=== PATIENT | male | born 1990 | race African-American/Black ===

== ENCOUNTER 2018-05-19 23:12 | Emergency (ER) | payer SELFPAY ==
[~2018-05-19] VITALS: Ht 180.3 cm; Wt 81.6 kg
[2018-05-19] MEDS ORDERED: NKM (23:22)
[2018-05-19 23:28] VITALS: BP 120/75
[2018-05-20] MEDS ORDERED: Tetanus/Diptheria/Pertussis Vaccine 0.5ml Syr IM ONE
[2018-05-20] MEDS ORDERED: CLINDAMYCIN HC300 MG ORAL (00:20)
[2018-05-20] MEDS ORDERED: IBUPROFEN600 MG ORAL (00:20)
--- NOTE | 2018-05-20 00:20 | Emergency Room Report ---
History of Present Illness General Chief Complaint: Laceration Source: Patient Present Illness HPI Is a 27-year-old male who is right-hand dominant. He presents with 2 chief complaints. First one is laceration to his right ring finger. He just finished cutting chicken and placed the knife on the counter. He asked me not the knife down and try to catch it. He sustained a laceration to the tip of his right ring finger. This occurred around 6 PM. It would not stop bleeding. No other injury. Pain is throbbing in nature, 7 out of 10. Secondary complaint of dental pain. His been ongoing for couple months. Mostly to his left jaw. He seen a doctor before and given a shot of pain medication and antibiotics. Has never follow-up with dentist. No swelling. Allergies: Coded Allergies: No Known Allergies (Unverified , 05/19/18) Patient History Past Medical History: see triage record, old chart reviewed Past Surgical History: none Pertinent Family History: none Social History: Denies: smoking Immunizations: other Reviewed Nursing Documentation: PMH: Agreed; PSxH: Agreed Nursing Documentation-PMH Past Medical History: No Stated History Review of Systems Eye: Denies: eye pain, blurred vision ENT: Denies: ear pain, nose congestion, throat swelling Respiratory: Denies: cough, shortness of breath Cardiovascular: Denies: chest pain, palpitations Gastrointestinal: Denies: abdominal pain, diarrhea, nausea, vomiting Musculoskeletal: Denies: back pain, joint pain Skin: Denies: rash Neurological: Denies: headache, numbness Endocrine: Denies: increased thirst, increased urine Hematologic/Lymphatic: Denies: easy bruising All Other Systems: negative except mentioned in HPI Physical Exam Vital Signs Date Time Temp Pulse Resp B/P (MAP) Pulse Ox O2 Delivery O2 Flow Rate FiO2 05/19/18 23:14 97.6 74 16 120/75 98 Room Air 97.5 vitals normal Sp02 EP Interpretation: reviewed, normal General Appearance: well appearing, no apparent distress, alert Head: normocephalic, atraumatic Eyes: bilateral eye PERRL, bilateral eye EOMI ENT: hearing grossly normal, normal pharynx, other - Poor Dentition with decay Neck: full range of motion, supple, no meningismus Respiratory: chest non-tender, lungs clear, normal breath sounds Cardiovascular #1: regular rate, rhythm, no murmur Gastrointestinal: normal bowel sounds, non tender, no mass, no organomegaly, no bruit, non-distended Musculoskeletal: back normal, gait/station normal, normal range of motion, other - Right ring finger: There is a 2 cm laceration over the pad. Full range of motion. No tendon laceration. No foreign body. Neurologic: alert, oriented x3 Psychiatric: mood/affect normal Skin: warm/dry Procedures Laceration/Wound Repair Laceration/Wound Repair : Consent: Verbal Wound Location: upper extremity Wound's Depth, Shape: linear Wound Length (cm): 2 Wound Explored: clean Irrigated w/ Saline (ccs): 1000 Betadine Prep?: Yes Anesthesia: 1% Lidocaine Volume Anesthetic (ccs): 1 Wound Repaired With: sutures Suture Size/Type: 6:0, proline Number of Sutures: 4 Patient Tolerated: Well Complications: None Medical Decision Making Diagnostic Impression: Primary Impression: Finger laceration Qualified Codes: S61.214A - Laceration without foreign body of right ring finger without damage to nail, initial encounter Additional Impression: Pain due to dental caries ER Course Patient with finger laceration. No tendon laceration. No foreign body. We'll discharge home. He has dental infection with no obvious abscess. Last Vital Signs Date Time Temp Pulse Resp B/P (MAP) Pulse Ox O2 Delivery O2 Flow Rate FiO2 05/19/18 23:28 97.5 74 16 120/75 98 Room Air 97.5 Status: improved Disposition: HOME, SELF-CARE Condition: Stable Scripts Ibuprofen* (MOTRIN*) 600 Mg Tablet 600 MG ORAL THREE TIMES A DAY, #30 TAB 0 Refills Prov: ALYSSA FLANNERY M.D. 05/20/18 Clindamycin Hcl (CLINDAMYCIN HCL) 300 Mg Capsule 300 MG ORAL THREE TIMES A DAY, #21 CAP Prov: ALYSSA FLANNERY M.D. 05/20/18 Referrals: NOT CHOSEN [facility]/,REFERRING (PCP) Patient Instructions: Laceration Care, Adult Additional Instructions: Follow with a dentist BILL. Follow-up with your DrLolis in 7 days for suture removal. Return if worse. ALYSSA FLANNERY M.D. May 20, 2018 00:20
[2018-05-20 00:24] VITALS: BP 120/75
== END 2018-05-20 00:24 | disposition home or self-care (01) ==
LOC: EMR 23:55
DX: S61.214A Laceration without foreign body of right ring finger without damage to nail, initial encounter (principal); K02.9 Dental caries, unspecified; W26.0XXA Contact with knife, initial encounter; Y92.9 Unspecified place or not applicable
CPT/HCPCS: 90471; 90715; 99283

== ENCOUNTER 2018-05-26 09:36 | Emergency (ER) | payer SELFPAY ==
[~2018-05-26] VITALS: Ht 180.3 cm; Wt 81.6 kg
[~2018-05-26 09:36] MED LIST: CLINDAMYCIN HC300 MG ORAL; IBUPROFEN600 MG ORAL; NKM
[2018-05-26 09:49] VITALS: BP 111/66
--- NOTE | 2018-05-26 10:02 | Emergency Room Report ---
History of Present Illness General Chief Complaint: Wound Recheck/Suture Removal Source: Patient Present Illness HPI Patient presents for removal of sutures in his finger Patient reports that the area has been healing well Denies any discharge Denies any redness or discomfort Denies any pain with bending the finger The injury initially occurred approximately 7 days ago with a sharp object Allergies: Coded Allergies: No Known Allergies (Unverified , 05/19/18) Patient History Past Medical History: see triage record Pertinent Family History: none Reviewed Nursing Documentation: PMH: Agreed; PSxH: Agreed Nursing Documentation-PMH Past Medical History: No History, Except For Hx Asthma: Yes Review of Systems All Other Systems: negative except mentioned in HPI Physical Exam Vital Signs Date Time Temp Pulse Resp B/P (MAP) Pulse Ox O2 Delivery O2 Flow Rate FiO2 05/26/18 09:42 97.5 79 18 111/66 96 Room Air 97.5 Sp02 EP Interpretation: reviewed, normal General Appearance: well appearing, no apparent distress Head: normocephalic, atraumatic Eyes: bilateral eye PERRL, bilateral eye EOMI Neck: full range of motion, supple Gastrointestinal: non tender, soft Musculoskeletal: other - Full flexion and extension intact on the right digit Neurologic: alert, oriented x3 Skin: other - Sutures appeared to be healing well no signs of dehiscence Medical Decision Making Diagnostic Impression: Primary Impression: Suture check Additional Impression: suture removal ER Course Area was cleansed and prepped Sutures removed using the suture removal in the usual fashion For sutures were removed without any incidents No obvious dehiscence and patient stable for close follow-up Last Vital Signs Date Time Temp Pulse Resp B/P (MAP) Pulse Ox O2 Delivery O2 Flow Rate FiO2 05/26/18 09:49 97.5 18 111/66 96 Room Air 97.5 05/26/18 09:42 79 Status: improved Disposition: HOME, SELF-CARE Condition: Improved Departure Forms: Return to Work Return to Work in (Days): 1 Return to Work Date: May 26, 2018 Patient Instructions: Suture Removal, Care After Additional Instructions: Patient is provided with the discharge instructions notified to follow up with primary doctor in the next 2-3 days otherwise return to the er with any worsening symptoms. Please note that this report is being documented using [employer] technology. This can lead to erroneous entry secondary to incorrect interpretation by the dictating instrument. Reyes Berry DO May 26, 2018 10:02
[2018-05-26 18:32] VITALS: BP 111/66
== END 2018-05-26 10:30 | disposition home or self-care (01) ==
LOC: EMR 10:03
DX: Z48.02 Encounter for removal of sutures (principal); Z48.817 Encounter for surgical aftercare following surgery on the skin and subcutaneous tissue
CPT/HCPCS: 99281

== ENCOUNTER 2019-01-26 23:51 | Emergency (ER) | payer SELFPAY ==
[~2019-01-26] VITALS: Ht 180.3 cm; Wt 84.4 kg
[2019-01-27 00:15] VITALS: BP 157/93
--- NOTE | 2019-01-27 00:15 | NUR ---
ED Nurse Note: pt walked in c/o left side face and teeth pain x 3days. airway intact, resp even and unlabored on RA, will cont monitor.
[2019-01-27] MEDS ORDERED: IBUPROFEN600 MG ORAL (00:27)
[2019-01-27] MEDS ORDERED: HYDROCODON-ACE1 EA15 ORAL (00:27)
[2019-01-27] MEDS ORDERED: AUGMENTIN 875-1 EAC1 ORAL (00:27)
--- NOTE | 2019-01-27 00:28 | Emergency Room Report ---
History of Present Illness General Chief Complaint: Pain Source: Patient Present Illness HPI This is a 28-year-old male with no past H. He presents with chief complaint of left facial pain. Onset for last 3 days but worse tonight. Pain is 10 out of 10. Mostly just underneath the nose. Also with dental pain. Worse with eating and drinking. Allergies: Coded Allergies: No Known Allergies (Unverified , 05/19/18) Patient History Past Medical History: see triage record, old chart reviewed Past Surgical History: none Pertinent Family History: none Social History: Reports: smoking Immunizations: other Reviewed Nursing Documentation: PMH: Agreed; PSxH: Agreed Nursing Documentation-PMH Past Medical History: No Stated History Hx Asthma: Yes Review of Systems Eye: Denies: eye pain, blurred vision ENT: Denies: ear pain, nose congestion, throat swelling Respiratory: Denies: cough, shortness of breath Cardiovascular: Denies: chest pain, palpitations Gastrointestinal: Denies: abdominal pain, diarrhea, nausea, vomiting Musculoskeletal: Denies: back pain, joint pain Skin: Denies: rash Neurological: Denies: headache, numbness Endocrine: Denies: increased thirst, increased urine Hematologic/Lymphatic: Denies: easy bruising All Other Systems: negative except mentioned in HPI Physical Exam Vital Signs Date Time Temp Pulse Resp B/P (MAP) Pulse Ox O2 Delivery O2 Flow Rate FiO2 01/26/19 23:56 98.1 96 16 157/93 96 Room Air vitals with high blood pressure Sp02 EP Interpretation: reviewed, normal General Appearance: well appearing, no apparent distress, alert Head: normocephalic, atraumatic Eyes: bilateral eye PERRL, bilateral eye EOMI ENT: hearing grossly normal, normal pharynx, other - Poor dentition. Most of his pain is over the left upper incisor area. No obvious abscess to I and D. Neck: full range of motion, supple, no meningismus Respiratory: chest non-tender, lungs clear, normal breath sounds Cardiovascular #1: regular rate, rhythm, no murmur Gastrointestinal: normal bowel sounds, non tender, no mass, no organomegaly, no bruit, non-distended Musculoskeletal: back normal, gait/station normal, normal range of motion Psychiatric: mood/affect normal Skin: warm/dry Medical Decision Making Diagnostic Impression: Primary Impression: Dental abscess ER Course Patient presents with a dental abscess. No evidence of any that I can't I and D. No evidence of orbital cellulitis. We'll discharge home. Patient will need to see a dentist BILL. Last Vital Signs Date Time Temp Pulse Resp B/P (MAP) Pulse Ox O2 Delivery O2 Flow Rate FiO2 01/26/19 23:56 98.1 96 16 157/93 96 Room Air Status: improved Disposition: HOME, SELF-CARE Condition: Stable Scripts Ibuprofen* (MOTRIN*) 600 Mg Tablet 600 MG ORAL THREE TIMES A DAY, #30 TAB 0 Refills Prov: Satinder Padilla MD 01/27/19 Hydrocodone/Acetaminophen 5-325* (HYDROCODONE/ACETAMINOPHEN 5-325*) 1 Each Tablet 1 TAB ORAL Q6H PRN for For Pain, #10 TAB 0 Refills Prov: Satinder Padilla MD 01/27/19 Amoxicillin/Potassium Clav 875-125* (AUGMENTIN 875-125 TABLET*) 1 Each Tablet 1 TAB ORAL TWICE A DAY, #14 TAB Prov: Satinder Padilla MD 01/27/19 Additional Instructions: Follow-up with dentist BILL. Return if symptom worsen. Satinder Padilla MD Jan 27, 2019 00:28
[2019-01-27] MEDS ORDERED: HYDROcodone/Acetamin 5/325 tab ORAL ONE (00:30)
--- NOTE | 2019-01-27 00:38 | NUR ---
ED Nurse Note: pt cleared to be d/c per ERMD, pt discharge and aftercare instruction provided w/ prescription, pt education done via discussion and hand out, pt advised to follow up with dentist or return to ed if sx worsen or new sx develop, pt verbalized understanding and agrees with plan, vss, ambulatory w/ steady gait, left w/ all belongings, ID band removed.
[2019-01-27 00:41] VITALS: BP 157/93
== END 2019-01-27 00:42 | disposition home or self-care (01) ==
LOC: EMR 01-27 00:25
DX: K04.7 Periapical abscess without sinus (principal)
CPT/HCPCS: 99282